=== PATIENT | male | born 1970 | race Hispanic/Latino ===

== ENCOUNTER 2019-09-30 11:18 | Inpatient (IN) | payer BC ==
[~2019-09-30] VITALS: Ht 177.8 cm; Wt 88.4 kg
[2019-09-30] MEDS ORDERED: CEFTRIAXONE SODIUM 1 GM ONE (11:55)
[2019-09-30 12:15] LABS: BASOPHILS % (AUTO) 0.1 % (0.0-5.0); HEMATOCRIT 37.5 % (42-54); LYMPHOCYTES % (AUTO) 10.3 % (21.0-51.0); MEAN CORPUSCULAR HEMOGLOBIN 28.1 pg (27.0-33.0); MEAN CORPUSCULAR HGB CONC 33.6 g/dL (32.0-36.0); MEAN CORPUSCULAR VOLUME 83.7 fL (79-99); MONOCYTES % (AUTO) 4.7 % (3.0-13.0); NEUTROPHILS % (AUTO) 84.5 % (40.0-77.0); PLATELET COUNT (AUTO) 144 K/uL (130-400); RED BLOOD CELL COUNT(AUTO) 4.48 MIL/uL (4.50-6.20); RED CELL DISTRIBUTION WIDTH 13.2 % (11.0-15.5); WHITE BLOOD COUNT (AUTO) 8.4 K/uL (4.8-10.8)
[2019-09-30 12:27] LABS: INR 0.92 (0.85-1.15); PARTIAL THROMBOPLASTIN TIME 33.4 SEC (26.3-35.5)
[2019-09-30 12:28] LABS: ABG BASE EXCESS -8.9 mmol/L (-2.0-3.0); ABG HCO3 14.3 mmol/L (21.0-28.0); ABG OXYGEN SATURATION 95.1 % (95.0-99.0); ABG PCO2 25 mmHg (35-48)
[2019-09-30 13:09] LABS: CRP QUANTITATIVE 155.5 mg/L (0.00-9.0); POTASSIUM 4.3 mmol/L (3.5-5.1)
[2019-09-30 13:10] LABS: ALBUMIN 2.8 g/dL (3.5-5.0); BILIRUBIN,TOTAL 0.6 mg/dL (0.2-1.0); CREATININE 1.3 mg/dL (0.5-1.5); TOTAL PROTEIN, SERUM 7.7 g/dL (6.0-8.3)
[2019-09-30 13:13] LABS: FERRITIN 1812 ng/mL (30-400)
[2019-09-30 13:35] LABS: APPEARANCE,URINE Cloudy (CLEAR); BILIRUBIN,URINE Negative (NEGATIVE); COLOR,URINE Yellow (YELLOW); GLUCOSE, URINE (UA) >=1000 mg/dL (NEGATIVE); KETONES,URINE >=80 mg/dL (NEGATIVE); LEUKOCYTE ESTERASE ,URINE Moderate (NEGATIVE); NITRATE,URINE Negative (NEGATIVE); OCCULT BLOOD,URINE Moderate (NEGATIVE); PROTEIN,URINE POS 2+ mg/dL (NEGATIVE)
[2019-09-30 13:41] LABS: HEMOGLOBIN A1C 14.4 % (4.0-6.0)
[2019-09-30 13:43] LABS: ERYTHROCYTE SEDIMENTATION RATE 28 MM/HR (0-15)
[2019-09-30 13:44] LABS: CHOLESTEROL 198 mg/dL (<200); HDL CHOLESTEROL 58 mg/dL (29-71); LDL DIRECT 83 mg/dL (0-99); TRIGLYCERIDES 359 mg/dL (30-200)
[2019-09-30 14:05] LABS: BACTERIA,URINE Few /HPF (None Seen); MUCUS,URINE Few LPF (None Seen); RBC,URINE 26-50 /HPF (0-1); SQUAMOUS EPITHELIAL CELL,UR 0-2 /HPF (0-2); WBC,URINE >100 /HPF (0-1)
[2019-09-30] MEDS ORDERED: ERGOCALCIFEROL (VITAMIN D2) 50,000 UNIT CAPSULE PO ONE (15:00)
[2019-09-30] MEDS ORDERED: LACTULOSE 20 GM/30 ML UDCUP PO PRN (15:00)
[2019-09-30] MEDS ORDERED: ACETAMINOPHEN 325 MG TAB PO PRN ×2 (15:00)
[2019-09-30] MEDS ORDERED: ONDANSETRON HCL 4 MG/2 ML VIAL IV PRN (15:00)
[2019-09-30] MEDS ORDERED: CEFTRIAXONE SODIUM 1 GM IVP SCH (15:00)
[2019-09-30] MEDS ORDERED: IOHEXOL-350 75 ML VIAL IV ONE (15:22)
[2019-09-30] MEDS ORDERED: HYDRALAZINE HCL 20 MG/ML VIAL IV PRN (15:30)
[2019-09-30] MEDS ORDERED: IVERMECTIN 3 MG TAB PO SCH (16:00)
[2019-09-30] MEDS: INSULIN HUMULIN R 100 UNIT/ML 3ML SQ SCH ×2 (16:30→21:00)
[2019-09-30] MEDS ORDERED: INSULIN HUMULIN R 100 UNIT/ML 3ML ONE (18:05)
[2019-09-30] MEDS ORDERED: ERGOCALCIFEROL (VITAMIN D2) 50,000 UNIT CAPSULE ONE (18:06)
[2019-09-30] MEDS ORDERED: METHYLPREDNISOLONE SOD SUCC 40MG/ML 1ML ONE (20:30)
[2019-09-30] MEDS ORDERED: DOXYCYCLINE HYCLATE 100 MG TABLET PO ONE (20:31)
[2019-09-30] MEDS ORDERED: FAMOTIDINE 20MG TAB 20 MG TAB ONE (20:31)
[2019-09-30] MEDS ORDERED: ACETYLCYSTEINE 600 MG CAPSULE ONE (20:31)
[2019-09-30] MEDS: ACETYLCYSTEINE 600 MG CAPSULE PO SCH (21:00)
[2019-09-30] MEDS ORDERED: DOXYCYCLINE HYCLATE 100 MG TABLET PO SCH (21:00)
[2019-09-30] MEDS: FAMOTIDINE 20MG TAB 20 MG TAB PO SCH (21:00)
[2019-09-30] MEDS: METHYLPREDNISOLONE SOD SUCC 40MG/ML 1ML IVP SCH (21:00)
[2019-10-01 04:39] LABS: HEMATOCRIT 35.1 % (42-54); LYMPHOCYTES % (AUTO) 7.8 % (21.0-51.0); MEAN CORPUSCULAR HEMOGLOBIN 28.4 pg (27.0-33.0); MEAN CORPUSCULAR HGB CONC 33.6 g/dL (32.0-36.0); MEAN CORPUSCULAR VOLUME 84.4 fL (79-99); MONOCYTES % (AUTO) 1.6 % (3.0-13.0); NEUTROPHILS % (AUTO) 90.3 % (40.0-77.0); PLATELET COUNT (AUTO) 164 K/uL (130-400); RED BLOOD CELL COUNT(AUTO) 4.16 MIL/uL (4.50-6.20); RED CELL DISTRIBUTION WIDTH 13.3 % (11.0-15.5); WHITE BLOOD COUNT (AUTO) 7.5 K/uL (4.8-10.8)
[2019-10-01 04:53] LABS: POTASSIUM 4.4 mmol/L (3.5-5.1)
[2019-10-01 05:05] LABS: CRP QUANTITATIVE 192.6 mg/L (0.00-9.0)
[2019-10-01] MEDS: INSULIN HUMULIN R 100 UNIT/ML 3ML SQ SCH ×4 (07:30→21:00)
[2019-10-01] MEDS: ASCORBIC ACID 500 MG TAB PO SCH (09:00)
[2019-10-01] MEDS: METHYLPREDNISOLONE SOD SUCC 40MG/ML 1ML IVP SCH ×3 (09:00→21:00)
[2019-10-01] MEDS: ACETYLCYSTEINE 600 MG CAPSULE PO SCH ×2 (09:00→21:00)
[2019-10-01] MEDS ORDERED: ENOXAPARIN SODIUM 40 MG/0.4 ML SYRINGE SQ SCH (09:00)
[2019-10-01] MEDS: ZINC SULFATE 220 CAPSULE PO SCH (09:00)
[2019-10-01] MEDS: FAMOTIDINE 20MG TAB 20 MG TAB PO SCH ×2 (09:00→21:00)
[2019-10-01] MEDS ORDERED: METHYLPREDNISOLONE SOD SUCC 40MG/ML 1ML ONE ×2 (11:25→19:01)
[2019-10-01] MEDS ORDERED: ASCORBIC ACID 500 MG TAB ONE (11:25)
[2019-10-01] MEDS ORDERED: FAMOTIDINE 20MG TAB 20 MG TAB ONE ×2 (11:25→23:41)
[2019-10-01] MEDS ORDERED: ACETYLCYSTEINE 600 MG CAPSULE ONE ×2 (11:25→23:42)
[2019-10-01] MEDS ORDERED: DOXYCYCLINE HYCLATE 100 MG TABLET PO ONE ×2 (11:25→23:41)
[2019-10-01] MEDS ORDERED: ZINC SULFATE 220 CAPSULE ONE (11:26)
[2019-10-01] MEDS ORDERED: ENOXAPARIN SODIUM 40 MG/0.4 ML SYRINGE SQ ONE (11:26)
[2019-10-01] MEDS ORDERED: INSULIN HUMULIN R 100 UNIT/ML 3ML ONE ×2 (11:46→18:09)
[2019-10-01] MEDS ORDERED: CEFTRIAXONE SODIUM 1 GM ONE (14:40)
--- NOTE | 2019-10-01 15:41 | NUR ---
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
[2019-10-02] MEDS ORDERED: METHYLPREDNISOLONE SOD SUCC 40MG/ML 1ML ONE ×3 (03:35→13:01)
[2019-10-02 06:12] LABS: ALBUMIN 2.3 g/dL (3.5-5.0); BILIRUBIN,TOTAL 0.4 mg/dL (0.2-1.0); CREATININE 1.1 mg/dL (0.5-1.5); CRP QUANTITATIVE 101.3 mg/L (0.00-9.0); POTASSIUM 4.3 mmol/L (3.5-5.1); TOTAL PROTEIN, SERUM 6.8 g/dL (6.0-8.3)
[2019-10-02] MEDS: INSULIN HUMULIN R 100 UNIT/ML 3ML SQ SCH ×4 (07:30→21:00)
[2019-10-02 08:39] LABS: BASOPHILS % (AUTO) 0.1 % (0.0-5.0); HEMATOCRIT 36.2 % (42-54); LYMPHOCYTES % (AUTO) 5.6 % (21.0-51.0); MEAN CORPUSCULAR HGB CONC 32.6 g/dL (32.0-36.0); MEAN CORPUSCULAR VOLUME 85.8 fL (79-99); MONOCYTES % (AUTO) 2.8 % (3.0-13.0); PLATELET COUNT (AUTO) 211 K/uL (130-400); RED BLOOD CELL COUNT(AUTO) 4.22 MIL/uL (4.50-6.20); RED CELL DISTRIBUTION WIDTH 13.3 % (11.0-15.5); WHITE BLOOD COUNT (AUTO) 12.1 K/uL (4.8-10.8)
[2019-10-02] MEDS: ACETYLCYSTEINE 600 MG CAPSULE PO SCH ×2 (09:00→21:00)
[2019-10-02] MEDS: ENOXAPARIN SODIUM 100 MG/1 ML SQ SCH (09:00)
[2019-10-02] MEDS ORDERED: ENOXAPARIN SODIUM 1 MG/KG SQ SCH (09:00)
[2019-10-02] MEDS: METHYLPREDNISOLONE SOD SUCC 40MG/ML 1ML IVP SCH ×3 (09:00→21:00)
[2019-10-02] MEDS: ZINC SULFATE 220 CAPSULE PO SCH (09:00)
[2019-10-02] MEDS: ASCORBIC ACID 500 MG TAB PO SCH (09:00)
[2019-10-02] MEDS: FAMOTIDINE 20MG TAB 20 MG TAB PO SCH ×2 (09:00→21:00)
[2019-10-02] MEDS ORDERED: DOXYCYCLINE HYCLATE 100 MG TABLET PO ONE (09:40)
[2019-10-02] MEDS ORDERED: ZINC SULFATE 220 CAPSULE ONE (09:41)
[2019-10-02] MEDS ORDERED: ASCORBIC ACID 500 MG TAB ONE (09:41)
[2019-10-02] MEDS ORDERED: ACETYLCYSTEINE 600 MG CAPSULE ONE ×2 (09:41→21:11)
[2019-10-02] MEDS ORDERED: FAMOTIDINE 20MG TAB 20 MG TAB ONE ×2 (09:41→21:11)
--- NOTE | 2019-10-02 10:00 | NUR ---
HOME MEDICATIONS PT AWAKE, ALERT, AND ORIENTED. PT DENIES TAKING HOME MEDICATIONS.
[2019-10-02] MEDS ORDERED: INSULIN HUMULIN R 100 UNIT/ML 3ML ONE ×2 (10:09→21:13)
[2019-10-02] MEDS: ZOSYN 3.375GM+NS 50ML 50 ML IV SCH ×2 (12:15→20:15)
[2019-10-02] MEDS ORDERED: ZOSYN 3.375GM+NS 50ML 50 ML IV ONE ×2 (13:01→21:12)
[2019-10-02 19:36] LABS: HEMOGLOBIN A1C 12.6 % (4.0-6.0)
[2019-10-03] MEDS: INSULIN HUMULIN R 100 UNIT/ML 3ML SQ SCH ×5 (03:48→22:27)
[2019-10-03] MEDS: ZOSYN 3.375GM+NS 50ML 50 ML IV SCH ×3 (04:15→20:15)
[2019-10-03 05:35] VITALS: BP 166/82
[2019-10-03 07:44] LABS: CRP QUANTITATIVE 42.3 mg/L (0.00-9.0)
[2019-10-03 08:00] VITALS: BP 128/73
--- NOTE | 2019-10-03 10:00 | NUR ---
PATIENT LYING IN BED RESTING COMFORTABLY WITH O2 VIA N/C @ 3L. DIMINISHED BREATH SOUNDS TO LOWER LOBES AND SOB WITH EXERTION NOTED. STATES THAT HE'S FEELING BETTER AND HOPING TO BE ABLE TO RECOVER QUICKLY. I INSTRUCTED HIM THAT WE WILL BE GIVING HIM STEROIDS AND ANTIBIOTICS TO HELP HIM ALONG AND HOPE HIS STAY WITH US WILL NOT BE TOO LONG. Addendum: 10/03/19 at 1639 by LALITO STOREY RN RN Amended: Links added.
[2019-10-03] MEDS: METHYLPREDNISOLONE SOD SUCC 40MG/ML 1ML IVP SCH ×3 (10:26→22:25)
[2019-10-03] MEDS: FAMOTIDINE 20MG TAB 20 MG TAB PO SCH ×2 (10:27→22:26)
[2019-10-03] MEDS: ACETYLCYSTEINE 600 MG CAPSULE PO SCH ×2 (10:27→22:25)
[2019-10-03] MEDS: ZINC SULFATE 220 CAPSULE PO SCH (10:27)
[2019-10-03] MEDS: ENOXAPARIN SODIUM 100 MG/1 ML SQ SCH (10:28)
[2019-10-03] MEDS: ASCORBIC ACID 500 MG TAB PO SCH (10:28)
[2019-10-03 11:00] VITALS: BP 117/74
--- NOTE | 2019-10-03 12:00 | NUR ---
PATIENT LYING QUIETLY WITH NO S/S OF DISTRESS NOR ANY DISCOMFORT AT THIS TIME. DIDN'T EAT BREAKFAST AND LUNCH NOW HERE. STATES THAT HE DOESN'T HAVE MUCH OF AN APPETITE. INSTRUCTED TO CALL FOR ANY NEEDS FOR ANY ASSISTANCE OR CONCERNS. Addendum: 10/03/19 at 1657 by LALITO STOREY RN RN Amended: Links added.
[2019-10-03 16:00] VITALS: BP 129/85
[2019-10-03 20:00] VITALS: BP 144/88
--- NOTE | 2019-10-03 22:28 | NUR ---
MD NOTIFIED PER PT BS PT BS 561 PER NURSE TECH, RECHECKED SUGAR WITH RESULT 515, MD NOTIFIED, NO CALL BACK AT THIS TIME. GAVE INSULIN PER SS ORDER.
[2019-10-04] VITALS: BP 140/92
[2019-10-04 04:00] VITALS: BP 141/90
[2019-10-04] MEDS: ZOSYN 3.375GM+NS 50ML 50 ML IV SCH ×3 (04:30→21:29)
[2019-10-04 06:20] LABS: BASOPHILS % (AUTO) 0.1 % (0.0-5.0); HEMATOCRIT 34.7 % (42-54); LYMPHOCYTES % (AUTO) 5.2 % (21.0-51.0); MEAN CORPUSCULAR HEMOGLOBIN 27.9 pg (27.0-33.0); MEAN CORPUSCULAR HGB CONC 34.3 g/dL (32.0-36.0); MEAN CORPUSCULAR VOLUME 81.5 fL (79-99); MONOCYTES % (AUTO) 3.9 % (3.0-13.0); NEUTROPHILS % (AUTO) 90.1 % (40.0-77.0); PLATELET COUNT (AUTO) 242 K/uL (130-400); RED BLOOD CELL COUNT(AUTO) 4.26 MIL/uL (4.50-6.20); RED CELL DISTRIBUTION WIDTH 12.6 % (11.0-15.5); WHITE BLOOD COUNT (AUTO) 9.2 K/uL (4.8-10.8)
[2019-10-04] MEDS: INSULIN LISPRO 100 UNIT/ML 3ML SQ SCH ×7 (06:20→21:33)
[2019-10-04 06:37] LABS: ALANINE AMINOTRANSFERASE 29 U/L (12-78); ALBUMIN 2.4 g/dL (3.5-5.0); ASPARTATE AMINOTRANSFERASE 22 U/L (10-37); BILIRUBIN,TOTAL 0.4 mg/dL (0.2-1.0); CARBON DIOXIDE 26 mmol/L (21-32); CHLORIDE 95 mmol/L (101-111); CREATININE 0.9 mg/dL (0.5-1.5); GLOMERULAR FILTR. RATE CALC 96 mL/min (>60); GLUCOSE,RANDOM 294 mg/dL (70-105); LACTATE DEHYDROGENASE 297 U/L (81-234); POTASSIUM 3.9 mmol/L (3.5-5.1); SODIUM SERUM 130 mmol/L (136-145); TOTAL PROTEIN, SERUM 6.8 g/dL (6.0-8.3); UREA NITROGEN, BLOOD 32 mg/dL (7-18)
[2019-10-04 08:00] VITALS: BP 127/57
[2019-10-04] MEDS: METOPROLOL TARTRATE 25 MG TAB PO SCH ×2 (08:59→21:29)
[2019-10-04] MEDS: FAMOTIDINE 20MG TAB 20 MG TAB PO SCH ×2 (09:00→21:29)
[2019-10-04] MEDS: ZINC SULFATE 220 CAPSULE PO SCH (09:00)
[2019-10-04] MEDS: ACETYLCYSTEINE 600 MG CAPSULE PO SCH ×2 (09:00→21:29)
[2019-10-04] MEDS: ASCORBIC ACID 500 MG TAB PO SCH (09:01)
[2019-10-04] MEDS: DEXAMETHASONE 4 MG TAB PO SCH (09:02)
[2019-10-04] MEDS: ENOXAPARIN SODIUM 100 MG/1 ML SQ SCH (09:02)
[2019-10-04 11:00] VITALS: BP 113/89
--- NOTE | 2019-10-04 11:40 | NUR ---
PT ON ROOM AIR; SATING 88% PLACED PATIENT BACK ON 02 AT 3L VIA NC. SATING 92%.
[2019-10-04 16:00] VITALS: BP 140/75
[2019-10-04 20:45] VITALS: BP 125/71
[2019-10-04] MEDS ORDERED: INSULIN GLARGINE 100 UNITS/ML 10 ML VIAL SQ SCH (21:00)
[2019-10-05 00:14] VITALS: BP 112/71
[2019-10-05] MEDS: ZOSYN 3.375GM+NS 50ML 50 ML IV SCH ×2 (03:43→13:23)
[2019-10-05 04:33] VITALS: BP 140/73
[2019-10-05] MEDS: INSULIN LISPRO 100 UNIT/ML 3ML SQ SCH ×7 (06:15→21:00)
[2019-10-05 07:14] LABS: BASOPHILS % (AUTO) 0.1 % (0.0-5.0); HEMATOCRIT 34.4 % (42-54); LYMPHOCYTES % (AUTO) 8.1 % (21.0-51.0); MEAN CORPUSCULAR HEMOGLOBIN 28.4 pg (27.0-33.0); MEAN CORPUSCULAR HGB CONC 34.9 g/dL (32.0-36.0); MEAN CORPUSCULAR VOLUME 81.3 fL (79-99); MONOCYTES % (AUTO) 3.8 % (3.0-13.0); NEUTROPHILS % (AUTO) 86.8 % (40.0-77.0); PLATELET COUNT (AUTO) 237 K/uL (130-400); RED BLOOD CELL COUNT(AUTO) 4.23 MIL/uL (4.50-6.20); RED CELL DISTRIBUTION WIDTH 12.6 % (11.0-15.5); WHITE BLOOD COUNT (AUTO) 8.2 K/uL (4.8-10.8)
[2019-10-05 07:36] LABS: ALBUMIN 2.3 g/dL (3.5-5.0); BILIRUBIN,TOTAL 0.4 mg/dL (0.2-1.0); CREATININE 0.9 mg/dL (0.5-1.5); CRP QUANTITATIVE 11.2 mg/L (0.00-9.0); POTASSIUM 3.9 mmol/L (3.5-5.1); TOTAL PROTEIN, SERUM 6.3 g/dL (6.0-8.3)
[2019-10-05 08:00] VITALS: BP 112/80
[2019-10-05] MEDS: ZINC SULFATE 220 CAPSULE PO SCH (09:48)
[2019-10-05] MEDS: ASCORBIC ACID 500 MG TAB PO SCH (09:49)
[2019-10-05] MEDS: FAMOTIDINE 20MG TAB 20 MG TAB PO SCH ×2 (09:49→21:00)
[2019-10-05] MEDS: METOPROLOL TARTRATE 25 MG TAB PO SCH ×2 (09:49→21:00)
[2019-10-05] MEDS: DEXAMETHASONE 4 MG TAB PO SCH (09:50)
[2019-10-05] MEDS: ACETYLCYSTEINE 600 MG CAPSULE PO SCH ×2 (09:50→21:00)
[2019-10-05] MEDS: ENOXAPARIN SODIUM 100 MG/1 ML SQ SCH (09:51)
[2019-10-05 11:00] VITALS: BP 120/80
[2019-10-05 16:00] VITALS: BP 99/60
[2019-10-05] MEDS: INSULIN GLARGINE 100 UNITS/ML 10 ML VIAL SQ SCH (21:00)
[2019-10-05 22:28] VITALS: BP 115/74
[2019-10-06] VITALS (7 sets, daily range): BP systolic 98–161; BP diastolic 56–88
[2019-10-06] MEDS: ZOSYN 3.375GM+NS 50ML 50 ML IV SCH ×3 (04:51→20:15)
[2019-10-06] MEDS: INSULIN LISPRO 100 UNIT/ML 3ML SQ SCH ×7 (07:30→22:32)
[2019-10-06] MEDS: METOPROLOL TARTRATE 25 MG TAB PO SCH ×2 (09:00→22:30)
[2019-10-06] MEDS: FAMOTIDINE 20MG TAB 20 MG TAB PO SCH ×2 (10:07→22:31)
[2019-10-06] MEDS: DEXAMETHASONE 4 MG TAB PO SCH (10:07)
[2019-10-06] MEDS: ASCORBIC ACID 500 MG TAB PO SCH (10:08)
[2019-10-06] MEDS: ACETYLCYSTEINE 600 MG CAPSULE PO SCH ×2 (10:08→22:31)
[2019-10-06] MEDS: ZINC SULFATE 220 CAPSULE PO SCH (10:08)
[2019-10-06] MEDS: ENOXAPARIN SODIUM 100 MG/1 ML SQ SCH (10:13)
--- NOTE | 2019-10-06 13:00 | NUR ---
cm note spoke to pt regarding need for home o2, and pt in agreement for referral to [facility] for setup. and will take loaner portable and concentrator home at dc and will return when he received his own. referral faxed to [facility], and called [facility] teresa, and arranged for pt to received portable and concentrator in room. for possible dc home today. updated [facility] primary nurse.
--- NOTE | 2019-10-06 17:56 | NUR ---
OXYGEN CONCENTRATOR #: [id number] AT BEDSIDE.
[2019-10-06] MEDS: INSULIN GLARGINE 100 UNITS/ML 10 ML VIAL SQ SCH (22:34)
[2019-10-07 04:04] VITALS: BP 121/77
[2019-10-07] MEDS: ZOSYN 3.375GM+NS 50ML 50 ML IV SCH ×2 (04:24→13:17)
[2019-10-07 04:42] LABS: BASOPHILS % (AUTO) 0.1 % (0.0-5.0); EOSINOPHILS % (AUTO) 0.3 % (0.0-8.0); HEMATOCRIT 33.4 % (42-54); LYMPHOCYTES % (AUTO) 12.2 % (21.0-51.0); MEAN CORPUSCULAR HEMOGLOBIN 28.2 pg (27.0-33.0); MEAN CORPUSCULAR HGB CONC 34.7 g/dL (32.0-36.0); MEAN CORPUSCULAR VOLUME 81.3 fL (79-99); MONOCYTES % (AUTO) 5.3 % (3.0-13.0); NEUTROPHILS % (AUTO) 77.5 % (40.0-77.0); PLATELET COUNT (AUTO) 233 K/uL (130-400); RED BLOOD CELL COUNT(AUTO) 4.11 MIL/uL (4.50-6.20); RED CELL DISTRIBUTION WIDTH 12.7 % (11.0-15.5); WHITE BLOOD COUNT (AUTO) 7.1 K/uL (4.8-10.8)
[2019-10-07 05:01] LABS: CREATININE 0.9 mg/dL (0.5-1.5)
[2019-10-07] MEDS: INSULIN LISPRO 100 UNIT/ML 3ML SQ SCH ×4 (07:30→11:30)
[2019-10-07 08:00] VITALS: BP 122/79
[2019-10-07] MEDS: DEXAMETHASONE 4 MG TAB PO SCH (09:02)
[2019-10-07] MEDS: ACETYLCYSTEINE 600 MG CAPSULE PO SCH (09:02)
[2019-10-07] MEDS: METOPROLOL TARTRATE 25 MG TAB PO SCH (09:02)
[2019-10-07] MEDS: FAMOTIDINE 20MG TAB 20 MG TAB PO SCH (09:02)
[2019-10-07] MEDS: ASCORBIC ACID 500 MG TAB PO SCH (09:03)
[2019-10-07] MEDS: ZINC SULFATE 220 CAPSULE PO SCH (09:03)
[2019-10-07] MEDS: ENOXAPARIN SODIUM 100 MG/1 ML SQ SCH (09:03)
[2019-10-07 11:30] VITALS: BP 115/72
--- NOTE | 2019-10-07 13:00 | NUR ---
cm note spoke to [place] charge nurse, informed pt should have his home o2 concentrator and portable O2 tank in his room prior to dc. verbalizes understanding.
[2019-10-07 15:30] VITALS: BP 107/80
[2019-10-07] MEDS ORDERED: ALBU8.5H8 IH (15:37)
[2019-10-07] MEDS ORDERED: ASCO500T10 PO (15:37)
[2019-10-07] MEDS ORDERED: DEXA6TAB7 PO (15:37)
[2019-10-07] MEDS ORDERED: ZINC220C6 PO (15:37)
[2019-10-07] MEDS ORDERED: BENZ-39 PO (15:37)
[2019-10-07] MEDS ORDERED: AZIT500T PO (15:37)
== END 2019-10-07 17:20 | disposition home or self-care (01) | DRG 177 ==
LOC: EDH 11:18 → EDHIP 13:40 → 4CH 10-03 05:33
PROVIDERS: ADMIT Family Medicine; ATTEND Family Medicine
DX: U07.1 COVID-19 (principal); J12.89 Other viral pneumonia; J96.01 Acute respiratory failure with hypoxia; E87.1 Hypo-osmolality and hyponatremia; E87.0 Hyperosmolality and hypernatremia; N17.9 Acute kidney failure, unspecified; E11.21 Type 2 diabetes mellitus with diabetic nephropathy; I10 Essential (primary) hypertension; D64.9 Anemia, unspecified; Z87.891 Personal history of nicotine dependence; Z83.3 Family history of diabetes mellitus; Z82.49 Family history of ischemic heart disease and other diseases of the circulatory system
CPT/HCPCS: 36415; 36600; 71045; 71275; 80048; 80053; 80061; 81001; 82010; 82550; 82728; 82803; 82948; 83036; 83605; 83615; 83930; 83935; 84145; 84300; 84443; 84484; 84550; 85025; 85378; 85610; 85651; 85730; 86140; 87040; 87088; 87426; 93005; 94760; G0378; J0696; J1650; J1815; J2543; J2920; J8540; Q9967